=== PATIENT | male | born 1965 | race Caucasian/White ===

== ENCOUNTER → 2021-07-28 14:04 | Outpatient (CLI) | payer OTHER, SELFPAY ==
--- NOTE | ~2021-07-28 | XR_ITS ---
XR hip LT min 3V w AP pelvis 07/28/2021 14:27 Indication: Left hip pain Procedure: 4 views left hip Comparison: No prior studies for comparison. Findings: Pelvic rings are intact. Sacral foramen are symmetric. No significant soft tissue abnormali ty. No joint space narrowing. No foreign bodies. Impression: 1: No significant bone or joint abnormality. Reviewed, dictated and finalized at location B. [employer] Impression: 1: No significant bone or joint abnormality.
== END ==
PROVIDERS: PCP Family Medicine; Visit Provider Family Medicine
DX: M25.552 Pain in left hip (principal); G89.29 Other chronic pain
CPT/HCPCS: 73502

== ENCOUNTER 2023-11-21 06:17 | Day surgery (SDC) | payer OTHER, SELFPAY ==
[2023-08-10 11:59] VITALS: BMI 34.0
[2023-11-21 07:13] VITALS: BP 138/93; PULSE 60; RESP 16; TEMP 36.4; O2SAT 100; BMI 33.2
[2023-11-21] MEDS: LACTATED RINGERS 1,000 ML 150 ML IV CONT (07:33)
--- NOTE | 2023-11-21 08:09 | PM.HPGS ---
History of Present Illness History of Present Illness Consent: Risks, benefits, and alternatives have been discussed and questions answered. Patient agrees to proceed with procedure. Chief complaint: Neoplasm Screening Narrative: Lon Courtney is a 57 year old male presents for screening colonoscopy. Patient's current weight appetite and bowel movements are normal. Patient is abdominal pain. He has had no bleeding. Family history is noncontributory. Previous colonoscopy 10 years ago was unremarkable. Review of Systems Review of Systems: All systems reviewed & are unremarkable except as noted in HPI and below PMFSH Past Medical History Medical History (Updated 08/06/23 @ 09:38 by Callum Aggarwal MD) Abnormal fasting glucose (05/09/17) fasting glucose 100 on 05/09/2017. glucose 104 with hemoglobin A1c 5.4 on 04/25/2021. Glucose 94 with hemoglobin A1c 5.4 on 07/26/2022. Glucose 86 with hemoglobin A1c 5.3 on 07/30/2023. Acute bronchitis BMI 34.0-34.9,adult BMI 35.0-35.9,adult Body mass index (bmi) 31.0-31.9, adult (11/25/18) Chronic left hip pain Chronic low back pain without sciatica Colon cancer screening normal colonoscopy at age 48 with recheck in 10 years Encounter for prostate cancer screening PSA 0.62 on 04/25/2021. PSA 0.64 on 07/26/2022. PSA 0.68 on 07/30/2023. Encounter for wellness examination in adult Exposure to COVID-19 virus Obesity (BMI 30-39.9) Obesity (BMI 30.0-34.9) Screening for heart disease (03/31/22) coronary artery CT scan on 03/31/2022 revealed minimal coronary artery calcifications. Seasonal allergic rhinitis Thrombocytopenia (04/25/21) platelets slightly low at 97 on 04/25/2021. Platelets 105 on 07/26/2022. Platelets 106 on 07/30/2023. Vitamin B12 deficiency anemia B12 734 with hemoglobin 16.0 on 04/25/2021. Level normal at 687 with folic acid 18.3 and hemoglobin 15.9 on 07/26/2022. normal at 1179 with hemoglobin 15.0 on 07/30/2023. Social History Social History (Updated 08/02/22 @ 13:03 by Lyudmila Prather MA) Smoking status: Never smoker Alcohol intake: current Drinks per week: 20 Alcohol use details: 4 per day Substance use: never Substance use type: does not use Current Housing: Decline to Answer Concerned About Future Housing: Decline to Answer Difficulty Paying Gas/Electric Bills: Decline to Answer Difficulty Paying for Meds: Decline to Answer Currently Unemployed: Decline to Answer Education: Decline to Answer Difficulty w/ Childcare or Family Care: Decline to Answer Living arrangements: with family Meds Home Medications and Allergies Home Medications Medication Instructions Recorded Confirmed Type L.acidop,casei,lactis,rham-B.lact,park 1 cap PO DIRECTED 07/28/21 11/21/23 History 625 mg (10 billion cell) capsule (Advanced Probiotic) cyanocobalamin (vitamin B-12) 1,000 mcg PO DAILY 07/28/21 11/21/23 History 1,000 mcg tablet sildenafil (pulm.hypertension) 20 See Rx Instructions PO ONCE #90 06/06/23 11/21/23 Rx mg tablet tabs Allergies Allergy/AdvReac Type Severity Reaction Status Date / Time No Known Allergies Allergy Verified 11/21/23 07:04 Vital Signs Vital Signs - 24 hr 11/21/23 07:13 Temperature 97.5 F L Pulse Rate 60 Respiratory Rate 16 Blood Pressure 138/93 H Pulse Oximetry 100 Oxygen Delivery Room Air Exam Narrative: Physical exam reveals patient to be alert signs stable. HEENT exam is unremarkable. Patient is anicteric. Lungs are clear to auscultation and to percussion. His without murmur or extra sounds. Abdomen bowel sounds are present soft nontender with no organomegaly. Digital external rectal exam is normal. Assessment and Plan Assessment and plan (1) Colon cancer screening: Code(s): Z12.11 - Encounter for screening for malignant neoplasm of colon Status: Acute Assessment and Plan: Patient presents for screening colonoscopy. Patient appears
--- NOTE | 2023-11-21 08:13 | WPDANESEPPF ---
Anes - Initial Pre Proc Eval Procedure: Operation Date: 11/21/23 08:30 Proposed Procedures p Screening Colonoscopy - Marc Smart MD Date/Time: 11/21/23 08:13 Surgeon: Marc Smart MD Pre Op Diagnosis: Neoplasm Screening Patient Data Age: 57 Gender: M Height: 1.75 m Weight: 102 kg Last Vital Signs Temp 36.4 C L 11/21/23 07:13 Pulse 60 11/21/23 07:13 Resp 16 11/21/23 07:13 BP 138/93 H 11/21/23 07:13 Pulse Ox 100 11/21/23 07:13 O2 Del Method Room Air 11/21/23 07:13 Allergies Allergy/AdvReac Type Severity Reaction Status Date / Time No Known Allergies Allergy Verified 11/21/23 07:04 Home Medications Medication Instructions Recorded Confirmed Type L.acidop,casei,lactis,rham-B.lact,park 1 cap PO DIRECTED 07/28/21 11/21/23 History 625 mg (10 billion cell) capsule (Advanced Probiotic) cyanocobalamin (vitamin B-12) 1,000 mcg PO DAILY 07/28/21 11/21/23 History 1,000 mcg tablet sildenafil (pulm.hypertension) 20 See Rx Instructions PO ONCE #90 06/06/23 11/21/23 Rx mg tablet tabs Patient hx anesthesia problems: none Family hx anesthesia problems: none Results Review: All pre-operative results and documents have been reviewed as part of the pre-operative evaluation. COUNTS INCLUDE 234 BEDS AT THE [facility] Past Medical History Medical History Abnormal fasting glucose (05/09/17) fasting glucose 100 on 05/09/2017. glucose 104 with hemoglobin A1c 5.4 on 04/25/2021. Glucose 94 with hemoglobin A1c 5.4 on 07/26/2022. Glucose 86 with hemoglobin A1c 5.3 on 07/30/2023. Acute bronchitis BMI 34.0-34.9,adult BMI 35.0-35.9,adult Body mass index (bmi) 31.0-31.9, adult (11/25/18) Chronic left hip pain Chronic low back pain without sciatica Colon cancer screening normal colonoscopy at age 48 with recheck in 10 years Encounter for prostate cancer screening PSA 0.62 on 04/25/2021. PSA 0.64 on 07/26/2022. PSA 0.68 on 07/30/2023. Encounter for wellness examination in adult Exposure to COVID-19 virus Obesity (BMI 30-39.9) Obesity (BMI 30.0-34.9) Screening for heart disease (03/31/22) coronary artery CT scan on 03/31/2022 revealed minimal coronary artery calcifications. Seasonal allergic rhinitis Thrombocytopenia (04/25/21) platelets slightly low at 97 on 04/25/2021. Platelets 105 on 07/26/2022. Platelets 106 on 07/30/2023. Vitamin B12 deficiency anemia B12 734 with hemoglobin 16.0 on 04/25/2021. Level normal at 687 with folic acid 18.3 and hemoglobin 15.9 on 07/26/2022. normal at 1179 with hemoglobin 15.0 on 07/30/2023. Social History Social History Smoking status: Never smoker Alcohol intake: current Drinks per week: 20 Alcohol use details: 4 per day Substance use: never Substance use type: does not use Current Housing: Decline to Answer Concerned About Future Housing: Decline to Answer Difficulty Paying Gas/Electric Bills: Decline to Answer Difficulty Paying for Meds: Decline to Answer Currently Unemployed: Decline to Answer Education: Decline to Answer Difficulty w/ Childcare or Family Care: Decline to Answer Living arrangements: with family Anes - Eval Final PreProcedure Day of Procedure 11/21/23 08:13 Patient weight: obese Heart: regular rate and rhythm Lungs: clear to auscultation Airway: Mallampati scale class II Neurological: alert and oriented Last oral intake: >/= 8 hours ASA classification: II Emergent: no Anesthetic plan: proceed Anesthesia type and monitoring: general GIVS and standard monitoring Results Review: All pre-operative results and documents have been reviewed as part of the pre-operative evaluation. Informed Consent: The patient's anesthetic plan and its attendant risks and benefits were discussed with the patient/family/POA. Questions were solicited and answers provided to the satisfaction of the patient/family/POA.
[2023-11-21 08:45] VITALS: BP 108/80; PULSE 55; RESP 18; O2SAT 98
[2023-11-21 08:55] VITALS: BP 118/79; PULSE 53; RESP 19; O2SAT 99
--- NOTE | 2023-11-21 08:56 | WPDANESPN ---
Anes - Prog Note Post-Op Date/Time: 11/21/23 08:56 Cardiovascular status: normal Respiratory status: normal Airway patency: baseline Mental status: baseline Post-Op hydration status: normal Vital Signs: Last Vital Signs Temp 36.4 C L 11/21/23 07:13 Pulse 55 L 11/21/23 08:48 Resp 18 11/21/23 08:48 BP 108/80 11/21/23 08:48 Pulse Ox 98 11/21/23 08:48 O2 Del Method Room Air 11/21/23 08:48 Pain Score (VAS): 0/10 I/O: Intake & Output 11/20/23 11/21/23 11/21/23 23:59 07:59 15:59 Intake Total 600 Balance 600 Patient Feedback: Patient satisfied with anesthetic care.
[2023-11-21 09:05] VITALS: BP 125/84; PULSE 52; RESP 16; O2SAT 99
== END 2023-11-21 09:11 | disposition home or self-care (01) ==
PROVIDERS: PCP Family Medicine; Visit Provider Internal Medicine Gastroenterology
PROC: 0DJD8ZZ Inspection of Lower Intestinal Tract, Via Natural or Artificial Opening Endoscopic (ICD-10-PCS; CPT 45378; principal; 2023-11-21 08:30)
DX: Z12.11 Encounter for screening for malignant neoplasm of colon (principal); D12.3 Benign neoplasm of transverse colon; K64.8 Other hemorrhoids
CPT/HCPCS: 45385

== ENCOUNTER 2023-11-21 07:00 | Outpatient (NON) | payer OTHER, SELFPAY | END 2023-11-21 07:01 | disposition home or self-care (01) | LOC: ANHLAB 11-22 07:10 | PROVIDERS: PCP Family Medicine; Visit Provider Internal Medicine Gastroenterology | DX: Z12.11 Encounter for screening for malignant neoplasm of colon (principal); D12.3 Benign neoplasm of transverse colon | CPT/HCPCS: 88305 ==